=== PATIENT | female | born 1995 | race Two or more races ===

== ENCOUNTER 2025-04-08 07:43 | Emergency (ER) | payer OTHER ==
[~2025-04-08] VITALS: Ht 157.5 cm; Wt 54.4 kg
[2025-04-08 08:21] VITALS: BP 102/69; O2SAT 100
[2025-04-08] MEDS ORDERED: LEVOTHYROXINE50 MC1 (08:24)
[2025-04-08] MEDS ORDERED: SERTRALINE HCL50 MG (08:24)
[2025-04-08] MEDS ORDERED: IBUprofen 100 MG/5 ML-120ML ML PO STA (09:41)
[2025-04-08] MEDS ORDERED: IBUprofen 20 MG/ML BLIST.PACK (5ML) PO ONE (09:41)
== END 2025-04-08 11:26 | disposition home or self-care (01) ==
LOC: ER 08:11 → EDBD 08:11 → ER 11:26
DX: S82.64XA Nondisplaced fracture of lateral malleolus of right fibula, initial encounter for closed fracture (principal); X58.XXXA Exposure to other specified factors, initial encounter; Y93.89 Activity, other specified; Y92.89 Other specified places as the place of occurrence of the external cause; Y99.9 Unspecified external cause status; E03.9 Hypothyroidism, unspecified; Z91.040 Latex allergy status; Z91.048 Other nonmedicinal substance allergy status

== ENCOUNTER 2025-04-15 08:59 | Outpatient (CLI) | payer OTHER ==
[~2025-04-15 08:59] MED LIST: LEVOTHYROXINE50 MC1; SERTRALINE HCL50 MG
== END 2025-04-15 09:02 | disposition home or self-care (01) ==
LOC: RAD 08:59
PROVIDERS: ATTEND Orthopaedic Surgery
DX: M25.571 Pain in right ankle and joints of right foot (principal)

== ENCOUNTER 2025-05-28 07:44 | Outpatient (CLI) | payer OTHER | END 2025-05-28 07:53 | disposition home or self-care (01) | LOC: RAD 07:44 | PROVIDERS: ATTEND Orthopaedic Surgery | DX: S82.61XD Displaced fracture of lateral malleolus of right fibula, subsequent encounter for closed fracture with routine healing (principal) ==

== ENCOUNTER 2025-08-13 16:03 | Outpatient (CLI) | payer OTHER | END 2025-08-13 16:09 | disposition home or self-care (01) | LOC: RAD 16:03 | PROVIDERS: ATTEND Orthopaedic Surgery | DX: S82.61XD Displaced fracture of lateral malleolus of right fibula, subsequent encounter for closed fracture with routine healing (principal) ==